=== PATIENT | female | born 1990 | race Caucasian/White ===

== ENCOUNTER 2017-07-06 17:11 | Inpatient (IN) | payer BC ==
[2017-07-06] MEDS ORDERED: Sodium Chloride 0.9% 2.5 ML Syringe FLUSH PRN (20:15)
[2017-07-06] MEDS ORDERED: Butorphanol 1 MG/ML SDV IVPUSH PRN (20:15)
[2017-07-06] MEDS ORDERED: Lidocaine 1% 50 ML MDV INJECT PRN (20:15)
[2017-07-06] MEDS ORDERED: Misoprostol 200 MCG Tab PO PRN (20:15)
[2017-07-06] MEDS ORDERED: Water For Irrigation,Sterile 1,000 ML Container IRR PRN (20:15)
[2017-07-06] MEDS ORDERED: Carboprost Tromethamine 250 MCG/1 ML Amp IM PRN (20:15)
[2017-07-06] MEDS ORDERED: Oxytocin/0.9 % Sodium Chloride 30 UNIT/500 ML BAG IV SCH (20:15)
[2017-07-06] MEDS ORDERED: Methylergonovine 0.2 MG/1 ML Amp IM PRN (20:15)
[2017-07-06] MEDS ORDERED: Sodium Chloride 0.9% 10 ML Syringe FLUSH PRN (20:15)
[2017-07-06] MEDS: Lactated Ringers 1,000 ML IV SCH (20:36)
[2017-07-07] MEDS: Nalbuphine 10 MG/1 ML Vial IVPUSH PRN ×2 (00:11→02:09)
[2017-07-07] MEDS ORDERED: Terbutaline 1 MG/ML SDV SUBCUT PRN (01:36)
[2017-07-07] MEDS ORDERED: Oxytocin/0.9 % Sodium Chloride 30 UNIT/500 ML BAG IV SCH (01:45)
[2017-07-07] MEDS: Lactated Ringers 1,000 ML IV SCH (02:06)
[2017-07-07] MEDS ORDERED: Lidocaine 1% 50 ML MDV ONE (08:47)
[2017-07-07] MEDS ORDERED: Oxytocin 10 Units/1 ML SDV ONE (09:05)
[2017-07-07] MEDS ORDERED: Benzocaine/Menthol 20%-0.5% Spray 78 GM Cannister TOP PRN (09:36)
[2017-07-07] MEDS ORDERED: Lanolin 100% Cream 7 GM Tube TOP PRN (09:36)
[2017-07-07] MEDS ORDERED: Witch Hazel Medicated Pads 40/Jar TOP PRN (09:36)
[2017-07-07] MEDS ORDERED: Bisacodyl 10 MG Supp RECTAL PRN (09:36)
[2017-07-07] MEDS ORDERED: Ibuprofen 400 MG Tab PO PRN (09:36)
[2017-07-07] MEDS ORDERED: Methylergonovine 0.2 MG/1 ML Amp IM PRN (09:39)
[2017-07-07] MEDS ORDERED: Oxytocin 10 Units/1 ML SDV IM ONE (09:40)
[2017-07-07] MEDS: Docusate Sodium 100 MG Cap PO PRN ×2 (11:39→21:28)
[2017-07-07] MEDS: Ibuprofen 800 MG Tab PO PRN (11:39)
[2017-07-08] MEDS: Ibuprofen 800 MG Tab PO PRN (05:29)
--- NOTE | 2017-07-08 08:39 | PCM.PNPP ---
- General Info Date of Service: 07/08/17 Admission Dx/Problem (Free Text): 27 yo s/p PPD 1 Subjective Update: Patient denies any complains , has minimal locha , left labial laceration stable Functional Status: Reports: Pain Controlled, Tolerating Diet, Ambulating, Urinating - Review of Systems General: Reports: No Symptoms HEENT: Reports: No Symptoms Pulmonary: Reports: No Symptoms Cardiovascular: Reports: No Symptoms Gastrointestinal: Reports: No Symptoms Genitourinary: Reports: No Symptoms Musculoskeletal: Reports: No Symptoms Skin: Reports: No Symptoms - General Info Date of Service: 07/08/17 - Patient Data Vital Signs - Most Recent: Last Vital Signs Temp 37.1 C 07/08/17 04:00 Pulse 73 07/08/17 04:00 Resp 14 07/08/17 04:00 BP 124/70 07/08/17 04:00 Pulse Ox 96 07/08/17 04:00 Weight - Most Recent: 72.575 kg Lab Results - Last 24 Hours: Laboratory Results - last 24 hr 07/08/17 Range/Units 05:26 Hgb 9.8 L (12.0-16.0) g/dL Hct 29.5 L (36.0-46.0) % Med Orders - Current: Current Medications Benzocaine/Menthol (Dermoplast Pain Relief 20%-0.5% [place]) 78 gm TOP ASDIRECTED PRN PRN Reason: Perineal Comfort Measure Last Admin: 07/07/17 11:34 Dose: 1 can Bisacodyl (Dulcolax) 10 mg RECTAL .ONCE PRN PRN Reason: Constipation Butorphanol Tartrate (Stadol) 1 mg IVPUSH ASDIRECTED PRN PRN Reason: Pain Carboprost Tromethamine (Hemabate Ds) 250 mcg IM ASDIRECTED PRN PRN Reason: Post Hemorrhage Docusate Sodium (Colace) 100 mg PO BID PRN PRN Reason: Constipation Last Admin: 07/07/17 21:28 Dose: 100 mg Emollient Ointment (Lansinoh Hpa) 0 gm TOP ASDIRECTED PRN PRN Reason: Sore Nipples Lactated Ringer's (Ringers, Lactated) 1,000 mls @ 150 mls/hr IV ASDIRECTED GARRY Last Admin: 07/07/17 02:06 Dose: 150 mls/hr Oxytocin/Sodium Chloride (Oxytocin 30 Unit/500 Ml-Ns) 30 unit in 500 mls @ 999 mls/hr IV ASDIRECTED GARRY Oxytocin/Sodium Chloride (Oxytocin 30 Unit/500 Ml-Ns) 30 unit in 500 mls @ 2 mls/hr IV TITRATE GARRY; 2 MUNITS/MIN PRN Reason: Protocol Last Titration: 07/07/17 07:05 Dose: 8 munits/min, 8 mls/hr Ibuprofen (Motrin) 400 mg PO Q4H PRN PRN Reason: Pain Ibuprofen (Motrin) 800 mg PO Q6H PRN PRN Reason: Pain Last Admin: 07/08/17 05:29 Dose: 800 mg Lidocaine HCl (Xylocaine 1%) 50 ml INJECT .ONCE PRN PRN Reason: Laceration repair Last Admin: 07/07/17 09:01 Dose: 50 ml Methylergonovine Maleate (Methergine) 0.2 mg IM ASDIRECTED PRN PRN Reason: Post Hemorrhage Last Admin: 07/07/17 09:15 Dose: 0.2 mg Methylergonovine Maleate (Methergine) 0.2 mg IM Q4H PRN PRN Reason: Bleeding Misoprostol (Cytotec) 200 mcg PO .ONCE PRN PRN Reason: Post Hemorrhage Nalbuphine HCl (Nubain) 10 mg IVPUSH ASDIRECTED PRN PRN Reason: Pain (severe 7-10) Last Admin: 07/07/17 02:09 Dose: 10 mg Sodium Chloride (Saline Flush) 10 ml FLUSH ASDIRECTED PRN PRN Reason: Keep Vein Open Sodium Chloride (Saline Flush) 2.5 ml FLUSH ASDIRECTED PRN PRN Reason: Keep Vein Open Sterile Water (Sterile Water For Irrigation) 1,000 ml IRR ASDIRECTED PRN PRN Reason: delivery Last Admin: 07/07/17 09:01 Dose: 1,000 ml Terbutaline Sulfate (Brethine) 0.25 mg SUBCUT ASDIRECTED PRN PRN Reason: Tacysystole Witch Monet (Tucks) 1 pad TOP ASDIRECTED PRN PRN Reason: comfort care Last Admin: 07/07/17 11:34 Dose: 1 tub Discontinued Medications Lidocaine HCl (Xylocaine 1%) Confirm Administered Dose 50 ml .ROUTE .STK-MED ONE Stop: 07/07/17 08:48 Oxytocin (Pitocin) Confirm Administered Dose 10 unit .ROUTE .STK-MED ONE Stop: 07/07/17 09:06 Last Admin: 07/07/17 09:09 Dose: 10 unit Oxytocin (Pitocin) 10 unit IM ONETIME ONE Stop: 07/07/17 09:41 - Interaction Interaction: Holding Support Person: Significant Other - Recovery Exam Fundal Tone: Firm Fundal Level: 1 Fingerbreadths Below Umbilicus Fundal Placement: Midline Lochia Amount: Scant Lochia Color: Rubra/Red Perineum Description: Intact, Minimal Bruising/Swelling Episiotomy/Laceration: Approximated Bladder Status: Voiding Urinary Elimination: Voided - Exam General: Alert HEENT: Pupils Equal Lungs: Clear to Auscultation Cardiovascular: Regular Rate, Regular Rhythm GI/Abdominal Exam: Normal Bowel Sounds Extremities: Normal Inspection - Problem List & Annotations (1) Vaginal delivery SNOMED Code(s): 639569592 Code(s): O80 - ENCOUNTER FOR FULL-TERM UNCOMPLICATED DELIVERY Status: Acute Current Visit: Yes - Problem List Review Problem List Initiated/Reviewed/Updated: Yes - My Orders Last 24 Hours: My Active Orders 07/07/17 09:36 Benzocaine/Menthol [Dermoplast Pain Relief 20%-0.5% [place]] 78 gm TOP ASDIRECTED PRN Bisacodyl [Dulcolax] 10 mg RECTAL .ONCE PRN Docusate Sodium [Colace] 100 mg PO BID PRN Ibuprofen [Motrin] 400 mg PO Q4H PRN Ibuprofen [Motrin] 800 mg PO Q6H PRN Lanolin [Lansinoh HPA] See Dose Instructions TOP ASDIRECTED PRN Witch Monet [Tucks] 1 pad TOP ASDIRECTED PRN 07/07/17 09:37 Patient Status [ADT] Routine Assess Lochia [WOMSER] Per Unit Routine Assess Uterine Involution [WOMSER] Per Unit Routine Peripheral IV Discontinue [OM.PC] Routine 07/07/17 09:39 Methylergonovine [Methergine] 0.2 mg IM Q4H PRN - Assessment Assessment:: 27yo s/p PPD1 stable , minimal lochia , - Plan Plan:: Pain control with OTC tylenol and Motrin Discharge home today Call [facility] if fever > 101 , heavy vaginal bleeding > 1 pad in 1 hr
--- NOTE | 2017-07-11 08:50 | OR ---
SURGEON: MEMO LILLY DATE OF PROCEDURE: 07/07/2017 PREOPERATIVE DIAGNOSIS: A 27-year-old 1, para 0, at 40 weeks and 1 day, admitted in active labor. GBS, negative. POSTOPERATIVE DIAGNOSIS: Status post normal spontaneous vaginal delivery with left labial laceration. EBL: 300 mL. ANESTHESIA: None. FINDINGS: A live female was delivered at 0901 hours. scores were 8 and 9. Weight was 3320 g. There was a left labial laceration that was repaired. HISTORY: She was a 27-year-old, G1, P0, who presented at 40 weeks and 1 day with regular contractions and SROM. she was 2 cm dilated, 80% effaced, and -3 station. Then she made change to 4 cm. As a result, the patient was admitted for augmentation of labor. She had a category I heart tracing. The patient was initially managed by Dr. Shahid. The patient's labor progressed accordingly and her forebag was ruptured, and I was notified. I was informed that patient was fully dilated. The patient was examined and was noted to be fully dilated and +2 station. The patient was encouraged to push and had good pushing effort. PROCEDURE IN DETAIL: The patient had good pushing effort. The patient delivered the head, followed by the anterior and posterior shoulder, then the body. The was placed on the mother's abdomen. Delayed cord clamping was observed. The cord was clamped and cut. The was dried and suctioned on the mother. The placenta was then delivered intact with controlled cord traction. After delivery of the placenta, the perineum was inspected. A left labial laceration was noted, which extended slightly to the clitoris, and Lidocaine was injected and the laceration was sutured with 3-0 Monocryl. After suturing, the perineum was inspected and noted to be hemostatic. All instrument and pad counts were correct x2. The baby was bonding with the mother in the delivery room. PATRICIA SAGASTUME /[id number] MTDD
== END 2017-07-08 12:45 | disposition home or self-care (01) | DRG 560 ==
LOC: MW.OBCHECK 17:11 → MW.OB 20:15 → OBSVTOIN 07-07 09:01 → MW.OB 07-07 13:19
PROVIDERS: ADMIT Obstetrics & Gynecology; ATTEND Obstetrics & Gynecology
PROC: 10E0XZZ Delivery of Products of Conception, External Approach (ICD-10-PCS; principal; 2017-07-07)
PROC: 0HQ9XZZ Repair Perineum Skin, External Approach (ICD-10-PCS; 2017-07-07)
DX: O70.0 First degree perineal laceration during delivery (principal); Z3A.40 40 weeks gestation of pregnancy; Z37.0 Single live birth
CPT/HCPCS: 36415; 59025; 59409; 84112; 85014; 85018; 85027; 86850; 86900; 86901; A9270-GY; J2210; J2300; J2590; J7120

== ENCOUNTER 2019-06-08 21:18 | Inpatient (IN) | payer BC ==
[2019-06-08] MEDS ORDERED: Tranexamic Acid 1,000 MG in Sodium Chloride 0.9% 100 ML IV PRN (21:52)
[2019-06-08] MEDS ORDERED: Lidocaine 1% 50 ML MDV INJECT PRN (21:52)
[2019-06-08] MEDS ORDERED: Butorphanol 1 MG/ML SDV IVPUSH PRN (21:52)
[2019-06-08] MEDS ORDERED: Carboprost Tromethamine 250 MCG/1 ML Amp IM PRN (21:52)
[2019-06-08] MEDS ORDERED: Misoprostol 200 MCG Tab PO PRN (21:52)
[2019-06-08] MEDS ORDERED: Sodium Chloride 0.9% 10 ML Syringe FLUSH PRN (21:52)
[2019-06-08] MEDS ORDERED: Methylergonovine 0.2 MG/1 ML Amp IM PRN (21:52)
[2019-06-08] MEDS ORDERED: Ondansetron 4 MG Tab.DIS PO PRN (21:52)
[2019-06-08] MEDS ORDERED: Water For Irrigation,Sterile 1,000 ML Container IRR PRN (21:52)
[2019-06-08] MEDS ORDERED: Nalbuphine 10 MG/1 ML Vial IVPUSH PRN (21:52)
[2019-06-08] MEDS ORDERED: Sodium Chloride 0.9% 10 ML SDV IV PRN (21:52)
[2019-06-08] MEDS ORDERED: Sodium Chloride 0.9% 2.5 ML Syringe FLUSH PRN (21:52)
[2019-06-08] MEDS ORDERED: Oxytocin/0.9 % Sodium Chloride 30 UNIT/500 ML BAG IV SCH (22:00)
[2019-06-08] MEDS ORDERED: Lactated Ringers 1,000 ML IV SCH (22:00)
[2019-06-09] MEDS ORDERED: Lanolin 100% Cream 7 GM Tube TOP PRN (02:03)
[2019-06-09] MEDS ORDERED: Docusate Sodium 100 MG Cap PO PRN (02:03)
[2019-06-09] MEDS ORDERED: Ibuprofen 400 MG Tab PO PRN (02:03)
[2019-06-09] MEDS ORDERED: Benzocaine/Menthol 20%-0.5% Spray 78 GM Cannister TOP PRN (02:03)
[2019-06-09] MEDS ORDERED: Witch Hazel Medicated Pads 40/Jar TOP PRN (02:03)
[2019-06-09] MEDS ORDERED: Acetaminophen 500 MG Tab PO PRN ×2 (02:03)
[2019-06-09] MEDS ORDERED: Bisacodyl 10 MG Supp RECTAL PRN (02:03)
[2019-06-09] MEDS: Ibuprofen 800 MG Tab PO PRN ×3 (02:18→17:34)
--- NOTE | 2019-06-09 03:25 | OR ---
SURGEON: Bob Polanco MD DATE OF PROCEDURE: 06/09/2019 INDICATION: A 29-year-old G2, P1-0-0-1 at 41-week 2-day gestation, presenting in labor. She was initially 4 cm dilated, progressed to 10/100/+1. Membranes ruptured spontaneously with thin meconium. She declined epidural. Category 1 tracing. PREOPERATIVE DIAGNOSES: 1. Padilla intrauterine at 41 weeks 2 days. 2. Active second stage of labor. POSTOPERATIVE DIAGNOSES: 1. Padilla intrauterine at 41 weeks 2 days. 2. Active second stage of labor. PROCEDURE: Normal spontaneous vaginal delivery. ANESTHESIA: Local anesthesia with lidocaine. FINDINGS: Male fetus in cephalic presentation. Weight of 8 pounds 12 ounces. of 8 and 9. Tight nuchal cord x1. DESCRIPTION OF PROCEDURE: The patient progressed to 10/100/+1; proceeded to push with contractions for approximately 20 minutes. head delivered in occiput anterior position over intact perineum. Baby restituted ROT. Tight nuchal cord x1 was noted. Anterior shoulder was delivered easily followed by the posterior shoulder and remaining body. Nuchal cord was reduced after delivery. Baby was placed on maternal abdomen and assessed by awaiting nursery staff. Baby was pink, crying vigorously, and moving all extremities after stimulation and suctioning. The umbilical cord was clamped and cut after 60 seconds and no longer pulsating. Cord gases were obtained. Placenta was delivered with gentle traction on the umbilical cord, found to be intact. Perineum was examined, and a second-degree laceration was noted. Lidocaine was used for local anesthesia and laceration repaired with 3-0 Vicryl in the usual fashion. Hemostasis was confirmed. Fundus was firm and below the umbilicus, and bleeding was light. She tolerated the procedure well. instructions were given to the patient. SONYA / MITESH /[id number] CASSANDRA
--- NOTE | 2019-06-10 08:26 | PCM.PNPP ---
- General Info Date of Service: 06/10/19 Functional Status: Reports: Pain Controlled, Tolerating Diet, Ambulating, Urinating - Review of Systems General: Reports: No Symptoms HEENT: Reports: No Symptoms Pulmonary: Reports: No Symptoms Cardiovascular: Reports: No Symptoms Gastrointestinal: Reports: No Symptoms Genitourinary: Reports: No Symptoms Musculoskeletal: Reports: No Symptoms Skin: Reports: No Symptoms Neurological: Reports: No Symptoms Psychiatric: Reports: No Symptoms - General Info Date of Service: 06/10/19 - Patient Data Vital Signs - Most Recent: Last Vital Signs Temp 36.4 C 06/10/19 04:13 Pulse 64 06/10/19 04:13 Resp 17 06/10/19 04:13 BP 108/58 L 06/10/19 04:13 Pulse Ox 96 06/10/19 04:13 Weight - Most Recent: 73.482 kg Lab Results - Last 24 Hours: Laboratory Results - last 24 hr 06/10/19 Range/Units 05:33 Hgb 11.5 L (12.0-16.0) g/dL Hct 34.2 L (36.0-46.0) % Med Orders - Current: Current Medications Acetaminophen (Tylenol Extra Strength) 500 mg PO Q4H PRN PRN Reason: Pain Acetaminophen (Tylenol Extra Strength) 1,000 mg PO Q4H PRN PRN Reason: Pain Benzocaine/Menthol (Dermoplast Pain Relief 20%-0.5% [place]) 78 gm TOP ASDIRECTED PRN PRN Reason: Perineal Comfort Measure Last Admin: 06/09/19 02:20 Dose: 1 spray Bisacodyl (Dulcolax) 10 mg RECTAL ONETIME PRN PRN Reason: Constipation Carboprost Tromethamine (Hemabate Ds) 250 mcg IM ASDIRECTED PRN PRN Reason: Post Hemorrhage Docusate Sodium (Colace) 100 mg PO BID PRN PRN Reason: Constipation Emollient Ointment (Lansinoh Hpa) 0 gm TOP ASDIRECTED PRN PRN Reason: Sore Nipples Last Admin: 06/09/19 02:19 Dose: 1 gm Tranexamic Acid 1,000 mg/ (Sodium Chloride) 110 mls @ 660 mls/hr IV ONETIME PRN PRN Reason: Bleeding Ibuprofen (Motrin) 400 mg PO Q4H PRN PRN Reason: Pain Ibuprofen (Motrin) 800 mg PO Q6H PRN PRN Reason: Pain Last Admin: 06/09/19 17:34 Dose: 800 mg Methylergonovine Maleate (Methergine) 0.2 mg IM ASDIRECTED PRN PRN Reason: Post Hemorrhage Misoprostol (Cytotec) 200 mcg PO ONETIME PRN PRN Reason: Post Hemorrhage Ondansetron HCl (Zofran Odt) 4 mg PO Q4H PRN PRN Reason: Nausea/Vomiting Sodium Chloride (Saline Flush) 10 ml FLUSH ASDIRECTED PRN PRN Reason: Keep Vein Open Sodium Chloride (Saline Flush) 2.5 ml FLUSH ASDIRECTED PRN PRN Reason: Keep Vein Open Sodium Chloride (Normal Saline) 10 ml IV ASDIRECTED PRN PRN Reason: IV Use Witch Monet (Tucks) 1 pad TOP ASDIRECTED PRN PRN Reason: comfort care Last Admin: 06/09/19 02:19 Dose: 1 pad Discontinued Medications Butorphanol Tartrate (Stadol) 1 mg IVPUSH Q1H PRN PRN Reason: Pain Lactated Ringer's (Ringers, Lactated) 1,000 mls @ 150 mls/hr IV ASDIRECTED GARRY Oxytocin/Sodium Chloride (Oxytocin 30 Unit/500 Ml-Ns) 30 unit in 500 mls @ 999 mls/hr IV TITRATE GARRY Last Admin: 06/09/19 01:37 Dose: 999 mls/hr Lidocaine HCl (Xylocaine 1%) 50 ml INJECT ONETIME PRN PRN Reason: Laceration repair Nalbuphine HCl (Nubain) 10 mg IVPUSH Q1H PRN PRN Reason: Pain (severe 7-10) Sterile Water (Sterile Water For Irrigation) 1,000 ml IRR ASDIRECTED PRN PRN Reason: delivery - Infant Interaction Infant Disposition, : [place] in Room with Family Interaction: Holding Infant Feeding: Breastfed ; Nursed Well Support Person: - Recovery Exam Fundal Tone: Firm Fundal Level: 2 Fingerbreadths Below Umbilicus Fundal Placement: Midline Lochia Amount: Scant Lochia Color: Rubra/Red Perineum Description: Intact, Minimal Bruising/Swelling Episiotomy/Laceration: Approximated Bladder Status: Voiding Urinary Elimination: Voided - Exam General: Alert, Oriented HEENT: Pupils Equal Neck: Supple Lungs: Normal Respiratory Effort GI/Abdominal Exam: Soft, Non-Tender, No Distention, No Mass Extremities: Normal Inspection, Non-Tender, No Pedal Edema Skin: Warm, Dry, Intact Neurological: No New Focal Deficit Psy/Mental Status: Alert, Normal Affect, Normal Mood - Problem List & Annotations (1) Vaginal delivery SNOMED Code(s): 270083700 Code(s): O80 - ENCOUNTER FOR FULL-TERM UNCOMPLICATED DELIVERY Status: Acute Current Visit: No - Problem List Review Problem List Initiated/Reviewed/Updated: Yes - Assessment Assessment:: PPD#1 after , stable, minimal lochia, tolerating diet. is going well, would like to be discharged today. - Plan Plan:: Discharge instructions reviewed. Dismiss to home today.
== END 2019-06-10 12:55 | disposition home or self-care (01) | DRG 560 ==
LOC: MW.OBCHECK 21:18 → MW.OB 21:20 → MW.OBCHECK 21:52 → OBSVTOIN 06-09 01:29 → MW.OB 06-09 05:05
PROVIDERS: ADMIT Obstetrics & Gynecology; ATTEND Obstetrics & Gynecology
PROC: 10E0XZZ Delivery of Products of Conception, External Approach (ICD-10-PCS; principal; 2019-06-09)
PROC: 0KQM0ZZ Repair Perineum Muscle, Open Approach (ICD-10-PCS; 2019-06-09)
DX: O48.0 Post-term pregnancy (principal); O69.1XX0 Labor and delivery complicated by cord around neck, with compression, not applicable or unspecified; Z3A.41 41 weeks gestation of pregnancy; Z37.0 Single live birth; O77.0 Labor and delivery complicated by meconium in amniotic fluid; O70.1 Second degree perineal laceration during delivery
CPT/HCPCS: 36415; 59025; 59409; 85014; 85018; 85027; 86850; 86900; 86901; A9270-GY; J2590

== ENCOUNTER 2020-05-03 14:33 | Emergency (ER) | payer BC ==
--- NOTE | 2020-05-03 15:10 | EDM.PDOC ---
ED HPI GENERAL MEDICAL PROBLEM - General Chief Complaint: Eye Problems Stated Complaint: LEFT EYE SWOLLEN Time Seen by Provider: 05/03/20 14:34 Source of Information: Reports: Patient History Limitations: Reports: No Limitations - History of Present Illness INITIAL COMMENTS - FREE TEXT/NARRATIVE: 30F presents for pain/swelling of under L eye x2 days worsening. No changes in vision, no discharge from eyes, no sinus pain/pressure, no rhinorrhea, no otalgia. No fevers. No cough. 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 ED EXAM GENERAL W FULL EYE - Physical Exam Exam: See Below Exam Limited By: No Limitations General Appearance: Alert, WD/WN, No Apparent Distress Eye Exam: Bilateral Eye: EOMI, PERRL Comments: mild soft tissue erythema/swelling/TTP under L eyelid without discharge noted from eyes; normal sclera/conjunctiva without injection or pallor. Throat/Mouth: Normal Voice, No Airway Compromise Head: Atraumatic, Normocephalic Neck: Normal Inspection Respiratory/Chest: No Respiratory Distress Cardiovascular: Normal Peripheral Pulses Extremities: Normal Inspection Neurological: Alert, Oriented Psychiatric: Normal Affect, Normal Mood Skin Exam: Warm, Dry, Intact, Normal Color, No Rash Course - Vital Signs Last Recorded V/S: Last Vital Signs Temp 97.2 F 05/03/20 14:55 Pulse 74 05/03/20 14:55 Resp 20 05/03/20 14:55 BP 109/53 L 05/03/20 14:55 Pulse Ox 96 05/03/20 14:55 - Re-Assessments/Exams Free Text/Narrative Re-Assessment/Exam: 05/03/20 15:07 Apparent pre-septal cellulitis, will treat as such w/ outpatient abx, return precautions discussed Departure - Departure Time of Disposition: 15:08 Disposition: Home, Self-Care 01 Condition: Good Clinical Impression: Preseptal cellulitis of left lower eyelid - Discharge Information Prescriptions: Amoxicillin/Potassium Clav [Augmentin 875-125 Tablet] 1 each PO BID 7 Days #14 tablet Referrals: PCP,None [Primary Care Provider] - Additional Instructions: The following information is given to patients seen in the emergency department who are being discharged to home. This information is to outline your options for follow-up care. We provide all patients seen in our emergency department with a follow-up referral. The need for follow-up, as well as the timing and circumstances, are variable depending upon the specifics of your emergency department visit. If you don't have a primary care physician on staff, we will provide you with a referral. We always advise you to contact your personal physician following an emergency department visit to inform them of the circumstance of the visit and f or follow-up with them and/or the need for any referrals to a consulting specialist. The emergency department will also refer you to a specialist when appropriate. This referral assures that you have the opportunity for follow-up care with a specialist. All of these measure are taken in an effort to provide you with optimal care, which includes your follow-up. Under all circumstances we always encourage you to contact your private physician who remains a resource for coordinating your care. When calling for follow-up care, please make the office aware that this follow-up is from your recent emergency room visit. If for any reason you are refused follow-up, please contact the [facility] Emergency Department at and asked to speak to the emergency department charge nurse. Follow up with a primary care physician in 1-3 days; if you do not already have one, you can utilize either of the below clinics and let them know you were seen in the ED and require rios follow-up: [facility]- Primary [facility] [address] [place] [id number] [facility] [address] [place] [id number] Sepsis Event Note (ED) - Evaluation Sepsis Screening Result: No Definite Risk - Focused Exam Vital Signs: Vital Signs Temp Pulse Resp BP Pulse Ox 05/03/20 14:55 97.2 F 74 20 109/53 L 96
== END 2020-05-03 15:20 | disposition home or self-care (01) ==
LOC: MW.ED 14:33
DX: L03.213 Periorbital cellulitis (principal); H00.035 Abscess of left lower eyelid; Z88.6 Allergy status to analgesic agent; Z88.5 Allergy status to narcotic agent
CPT/HCPCS: 99282; 99283

== ENCOUNTER 2022-01-14 11:51 | Emergency (ER) | payer BC ==
[2022-01-14] MEDS ORDERED: Sodium Chloride 0.9% 10 ML Syringe FLUSH PRN (12:28)
[2022-01-14] MEDS ORDERED: Sodium Chloride 0.9% 2.5 ML Syringe FLUSH PRN (12:28)
[2022-01-14 13:06] LABS: BLOOD UREA NITROGEN,BUN 14 mg/dL (7.0-18.0); CARBON DIOXIDE,CO2 28.1 mmol/L (21.0-32.0); CHLORIDE,CL 105 mmol/L (98-107); GLUCOSE RANDOM 119 mg/dL (74-106); LIPASE 61 U/L (73-393); POTASSIUM,K 4.1 mmol/L (3.5-5.1); SODIUM,NA 139 mmol/L (136-145)
[2022-01-14 13:46] LABS: CORONAVIRUS COVID-19 NAA NEGATIVE (NEGATIVE); INFLUENZA A NAA NEGATIVE (NEGATIVE); INFLUENZA B NAA NEGATIVE (NEGATIVE)
[2022-01-14] MEDS ORDERED: Iopamidol 755 MG/ML 500 ML Multipack Bottle IVPUSH ONE (14:38)
== END 2022-01-14 15:29 | disposition home or self-care (01) ==
LOC: MW.ED 11:51
DX: K59.00 Constipation, unspecified (principal); Z88.5 Allergy status to narcotic agent; Z88.8 Allergy status to other drugs, medicaments and biological substances; Z20.822 Contact with and (suspected) exposure to COVID-19
CPT/HCPCS: 0240U; 36415; 74177; 80053; 81001; 83690; 84703; 85025; 99284; J3490; Q9967; 99283